=== PATIENT | male | born 1990 | race Two or more races ===

== ENCOUNTER 2018-05-14 16:45 | Emergency (ER) | payer MEDICAID, OTHER ==
[~2018-05-14] VITALS: Ht 165.1 cm; Wt 73.9 kg
[2018-05-14 17:34] LABS: Urine WBC None Seen /hpf (0 - 3)
[2018-05-14 17:58] LABS: Basophils # (auto) 0 uL; Basophils % (auto) 0.3 % (0.0-2.0); Eosinophils # (auto) 0.2 uL; Eosinophils % (auto) 2.6 % (0.0-7.0); Hematocrit 47.9 % (41.0-53.0); Hemoglobin 16.1 g/dL (13.5-17.5); Lymphocytes # (auto) 1.1 uL; Lymphocytes % (auto) 12.8 % (10.0-50.0); Mean Corpuscular Hemoglobin 30.8 pg (28.0-32.0); Mean Corpuscular Hgb Conc. 33.6 g/dL (32.0-36.0); Mean Corpuscular Volume 91.7 fL (80.0-100.0); Monocytes # (auto) 0.3 uL; Monocytes % (auto) 3.7 % (0.0-12.0); Neutrophils # (auto) 6.8 uL; Neutrophils % (auto) 80.6 % (37.0-80.0); Nucleated Red Blood Cells % 0.1 %; Platelet Count (auto) 250 10^3/uL (140-450); Red Blood Cells 5.22 10^6/uL (4.5-5.90); Red Cell Distribution Width 12.6 % (11.8-14.3); White Blood Cell 8.4 10^3/uL (4.4-10.8)
[2018-05-14 17:58] LABS: Urine Bacteria NONE SEEN /hpf (None Seen); Urine Blood Negative /uL (Negative)
[2018-05-14 18:03] LABS: Albumin 4.2 g/dL (3.4-5.0); BUN/Creatinine Ratio 12.4; Calcium 8.7 mg/dL (8.5-10.1); Potassium 3.5 mmol/L (3.5-5.1)
[2018-05-14 18:05] LABS: Bilirubin, Total 0.7 mg/dL (0.2-1.0); Total Protein 7.7 g/dL (6.4-8.2)
[2018-05-14 22:15] VITALS: BP 122/76
== END 2018-05-14 22:30 | disposition home or self-care (01) ==
LOC: ER 16:51
DX: R10.13 Epigastric pain (principal); F12.90 Cannabis use, unspecified, uncomplicated
CPT/HCPCS: 36415; 74176; 80053; 81001; 85025

== ENCOUNTER 2020-04-28 13:30 | Emergency (ER) | payer MEDICAID ==
[~2020-04-28] VITALS: Ht 167.6 cm; Wt 81.6 kg
[2020-04-28] MEDS: SODIUM CHLORIDE 0.9% 1,000 ML IV ONE (14:18)
[2020-04-28 14:21] LABS: Basophils # (auto) 0 10 ^3/uL (0-0.2); Basophils % (auto) 0.2 % (0.0-2.0); Eosinophils # (auto) 0.3 10 ^3/uL (0-0.8); Eosinophils % (auto) 2.8 % (0.0-7.0); Hematocrit 50.5 % (41.0-53.0); Hemoglobin 17.2 g/dL (13.5-17.5); Lymphocytes % (auto) 8.9 % (10.0-50.0); Mean Corpuscular Hemoglobin 30.6 pg (28.0-32.0); Mean Corpuscular Volume 90.2 fL (80.0-100.0); Monocytes # (auto) 0.6 10 ^3/uL (0-1.3); Monocytes % (auto) 5.5 % (0.0-12.0); Neutrophils # (auto) 9.5 10 ^3/uL (1.6-8.6); Neutrophils % (auto) 82.6 % (37.0-80.0); Nucleated Red Blood Cells % 0.1 %; Platelet Count (auto) 268 10^3/uL (140-450); Red Blood Cells 5.61 10^6/uL (4.5-5.90); Red Cell Distribution Width 12.8 % (11.8-14.3); White Blood Cell 11.4 10^3/uL (4.4-10.8)
[2020-04-28 14:35] VITALS: BP 111/53
[2020-04-28 14:40] LABS: Albumin 4.3 g/dL (3.4-5.0); Calcium 9.1 mg/dL (8.5-10.1); Potassium 4.2 mmol/L (3.5-5.1)
[2020-04-28 14:44] LABS: BUN/Creatinine Ratio 8.2; Bilirubin, Total 0.6 mg/dL (0.2-1.0); Total Protein 8.4 g/dL (6.4-8.2)
[2020-04-28 15:40] LABS: Alcohol, Urine < 3.0 mg/dL (0-10); Amphetamine Screen, Urine NEGATIVE (NEGATIVE); Barbiturate Scree,Urine NEGATIVE (NEGATIVE); Benzodiazephine Screen, Urine NEGATIVE (NEGATIVE); Cannabinoid Screen, Urine POSITIVE (NEGATIVE); Cocaine Screen, Urine NEGATIVE (NEGATIVE); Phencyclidine Screen, Urine NEGATIVE (NEGATIVE)
[2020-04-28 15:47] LABS: Opiate Scree,Urine NEGATIVE (NEGATIVE)
== END 2020-04-28 16:19 | disposition left against medical advice (07) ==
LOC: ER 13:30
DX: E86.0 Dehydration (principal); R10.84 Generalized abdominal pain; F12.10 Cannabis abuse, uncomplicated
CPT/HCPCS: 36415; 80053; 80307; 85025; 96360; 99283; J7030

== ENCOUNTER 2021-09-25 13:09 | Emergency (ER) | payer MEDICAID ==
[~2021-09-25] VITALS: Ht 167.6 cm; Wt 76.3 kg
[2021-09-25 15:00] VITALS: BP 122/73
[2021-09-25] MEDS ORDERED: AMOX-277 PO (17:06)
[2021-09-25] MEDS ORDERED: NAPR500T31 PO (17:06)
[2021-09-25] MEDS: IBUPROFEN 800 MG TAB PO ONE (17:08)
[2021-09-25] MEDS: TETANUS-DIPTH-ACEL PERTUSSIS 0.5ML SYR Tdap IM ONE (17:09)
[2021-09-25] MEDS: cefTRIAXone SOD 1,000 MG VL IM ONE (17:09)
== END 2021-09-25 17:28 | disposition home or self-care (01) ==
LOC: ER 13:09
DX: S01.21XA Laceration without foreign body of nose, initial encounter (principal); S01.25XA Open bite of nose, initial encounter; W54.0XXA Bitten by dog, initial encounter; Y93.89 Activity, other specified; Y92.89 Other specified places as the place of occurrence of the external cause; Y99.8 Other external cause status
CPT/HCPCS: 12013; 90471; 90715; 96372; 99284; J0696

== ENCOUNTER 2021-10-05 14:35 | Emergency (ER) | payer MEDICAID ==
[~2021-10-05] VITALS: Ht 167.6 cm; Wt 81.1 kg
[~2021-10-05 14:35] MED LIST: AMOX-277 PO; NAPR500T31 PO
[2021-10-05 18:51] VITALS: BP 129/73
== END 2021-10-05 19:12 | disposition home or self-care (01) ==
LOC: ER 14:35
DX: S01.21XD Laceration without foreign body of nose, subsequent encounter (principal); X58.XXXD Exposure to other specified factors, subsequent encounter

== ENCOUNTER 2023-04-22 16:02 | Emergency (ER) | payer MEDICAID ==
[~2023-04-22] VITALS: Ht 167.6 cm; Wt 72.0 kg
[~2023-04-22 16:02] MED LIST changes: -AMOX-277 PO; +AMOX875T4 PO; +NAPR-746 PO; -NAPR500T31 PO
[2023-04-22 16:22] VITALS: BP 126/82; PULSE 60
[2023-04-22 18:27] VITALS: RESP 16; O2SAT 100
[2023-04-22 19:12] LABS: COVID19 ANTIGEN SOFIA FIA NEGATIVE (NEGATIVE); Rapid Influenza A Negative (Negative); Rapid Influenza B Negative (Negative)
[2023-04-22 19:17] LABS: Rapid Strep A Screen-Throat Negative
[2023-04-22] MEDS ORDERED: ACET500T58 PO (19:34)
[2023-04-22] MEDS ORDERED: IBUP-1454 PO (19:34)
[2023-04-22] MEDS ORDERED: LORA10CA PO (19:34)
[2023-04-22] MEDS ORDERED: BENZ100C97 PO (19:34)
== END 2023-04-22 19:43 | disposition home or self-care (01) ==
LOC: ER 16:02
DX: J06.9 Acute upper respiratory infection, unspecified (principal); F12.10 Cannabis abuse, uncomplicated; Z20.822 Contact with and (suspected) exposure to COVID-19
CPT/HCPCS: 36415; 71045; 87070; 87426; 87804; 87880